=== PATIENT | male | born 1960 | race African-American/Black ===

== ENCOUNTER 2025-02-16 11:24 | Outpatient (REF) | payer MEDICAID, SELFPAY ==
[2025-02-16 14:38] LABS: Appearance Urine Clear; Glucose Urine UA 100 mg/dL (Negative); PH 6.5 (5.0-9.0); Specific Gravity - Urine 1.020 (1.005-1.025); UMIC TRIGGER UA YES
[2025-02-16 14:59] LABS: Anion Gap 15 (12-20); Blood Urea Nitrogen 24 mg/dL (9-16); Calcium 9.4 mg/dL (8.4-10.2); Carbon Dioxide 28 mmol/L (22-29); Chloride 101 mmol/L (96-108); Estimated Glomerular Filt Rate 38; Potassium 3.7 mmol/L (3.3-5.1); Sodium 140 mmol/L (135-145)
[2025-02-16 15:36] LABS: Total Protein Urine Random 30 mg/dL (<12)
== END 2025-02-16 11:25 | disposition home or self-care (01) ==
LOC: HO.HKASLDS 11:24
PROVIDERS: PCP Internal Medicine; Visit Provider Internal Medicine Hypertension Specialist
DX: I12.9 Hypertensive chronic kidney disease with stage 1 through stage 4 chronic kidney disease, or unspecified chronic kidney disease (principal); N18.2 Chronic kidney disease, stage 2 (mild); F17.210 Nicotine dependence, cigarettes, uncomplicated
CPT/HCPCS: 36415; 80048; 81001; 82570; 84156; 99202

== ENCOUNTER 2025-02-16 11:24 | Outpatient (AMB) | payer MEDICAID, SELFPAY ==
--- NOTE | 2025-02-16 11:36 | HO.NEPHOV_ITS ---
Vital Signs 02/16/25 11:42 Height 5 ft 10 in Weight 135 lb BMI 19.4 BP 168/110 H Blood Pressure Location Lt brachial Position Sitting Intake Visit Reasons: ENP: Htn/CKD STG2-Unable to Speak Developer Evangelist Required: No Accompanied by: Self / Same As Patient Allergies ibuprofen Allergy (Unknown, Verified 02/16/25 11:45) Unknown lisinopril Allergy (Unknown, Verified 02/16/25 11:45) Swelling naproxen Allergy (Unknown, Verified 02/16/25 11:45) Unknown Medication List - Last Reconciled 02/16/25 by Ike Hull MD amlodipine 5 mg PO DAILY fluoxetine 20 mg PO QAM gabapentin 300 mg PO BEDTIME PRN nebivolol 10 mg PO DAILY quetiapine 50 mg PO BEDTIME PRN tramadol 50 mg PO TID PRN HPI Comments Details: Russ is a 62-year-old man with a history of hypertension. He has been prescribed amlodipine 5 mg and nebivolol 10 mg. He has been referred for evaluation hypertension. After further questioning he says that he has not taken any of his antihypertensive medications for quite some time. He has been following some mydeco videos and he is worried about all the conspiracy theories that he has exposed to. He smokes about 10 cigarettes a day. History of using marijuana. He also sniff cocaine. Last use was about 3 days ago. [facility] Medical History (Updated 02/16/25 @ 11:49 by Ike Hull MD) Chronic right-sided low back pain with right-sided sciatica Stage 2 chronic kidney disease Primary hypertension Family History (Updated 02/16/25 @ 11:44 by POONAM Berry) Mother Hypertension Father Hypertension Review of Systems Const Denies fever(s) and Denies weight loss Card Denies chest pain Resp Denies cough and Denies hemoptysis GI Denies abdominal pain, Denies diarrhea and Denies nausea Musc Denies back pain Neuro Denies focal weakness Physical Exam Vital Signs: Last Vital Signs BP 168/110 H 02/16/25 11:42 BMI result Body Mass Index 19.4 Comfortable Neck supple no JVD. Lungs entry equal no rales. Heart S1-S2 heard no gallop or rub. Abdomen soft nontender. Neuro alert awake oriented. No asterixis. Extremities no edema. Results Reviewed Results Reviewed: Labs pending Assessment & Plan Assessment & Plan (1) Primary hypertension: Code(s): I10 - Essential (primary) hypertension Category: Medical Plan Middle-aged man with hypertension. Currently hypertension is untreated because he is not taking any of his medications as prescribed. I had a lengthy discussion with him regarding starting antihypertensive medications. I have encouraged him to stay on low-sodium diet. Avoid drug abuse especially cocaine which could spike of blood pressure. The meantime asked him to start taking amlodipine 5 mg a day for the next few weeks and I will see him again. Based on the blood pressure readings we can tailor his treatment. Ordered baseline workup including renal panel and urine studies. We will keep you updated with his progress Thank Orders: Orders UA and rflx microscopic Today I10 - Essential (primary) hypertension Total Protein Urine Random Today I10 - Essential (primary) hypertension Basic Metabolic Panel Today I10 - Essential (primary) hypertension Creatinine Urine Today I10 - Essential (primary) hypertension Coding Level of Care Code New Pt Level 4 (12417) Diagnoses Primary hypertension I10
[2025-02-16 11:42] VITALS: BP 168/110; BMI 19.4
--- OUTSIDE RECORDS SUMMARY | 2025-02-16 12:13 | XMS_ITS | Clinical Summary ---
Author Organization [facility] Address [address] [address] Phone Care Team Providers Care Head Start Director Name Role Phone Luciano Sosa MD Primary Care Provider [phone] Allergies Active Allergy Reactions Criticality Noted Date Comments Lisinopril 12/25/2022 Naproxen 12/25/2022 Medications albuterol HFA (PROVENTIL HFA;VENTOLIN HFA) 108 (90 Base) MCG/ACT inhaler Inhale 2 puffs every 6 (six) hours if needed for wheezing Active amLODIPine (NORVASC) 10 MG tablet Take 10 mg by mouth 1 (one) time each day Active FLUoxetine (PROzac) 40 MG capsule Take 40 mg by mouth 1 (one) time each day Active isosorbide mononitrate (IMDUR) 60 MG 24 hr tablet Take 60 mg by mouth 1 (one) time each day Do not crush or chew. Active QUEtiapine (SEROquel) 50 MG tablet Take 50 mg by mouth every night Active Social History Tobacco Use Types Packs/Day Years Used Date Smoking Tobacco: Never Assessed Sex and Gender Information Value Date Recorded Sex Assigned at Not on file Legal Sex Male 7:56 AM EDT Gender Identity Not on file Sexual Orientation Not on file Plan of Treatment Upcoming Encounters Date Type Department Care Team (Late st Contact Info) Description 03/03/2025 8:30 AM EDT Office Visit [facility] [address] [address] Ralph Webster MD [address] [address] Health Maintenance Due Date Last Done Comments Pneumococcal Vaccine: 50+ Ye ars (1 of 2 - PCV) 1978 Colorectal Cancer Screening: Annual FOBT 2008 Colorectal Cancer Screening: Colonoscopy 2008 Colorectal Cancer Screening: Sigmoidoscopy 2008 Influenza Vaccine (Season Ended) 2025 Hepatitis B Vaccine Aged Out No longe r eligible based on patient's age to complete this topic Insurance Medicaid [place] Care Teams Head Start Director Relationship Specialty Start Date End Date Luciano Sosa MD [address] [address] PCP - General Internal Medicine 01/25/25
--- OUTSIDE RECORDS SUMMARY | 2025-02-16 12:13 | XMS_ITS | Clinical Summary ---
Author Organization [facility] Address [address] [place] [address] Phone Care Team Providers Care Enhanced Environmental Operator Name Role Phone Luciano Sosa MD Primary Care Provider [phone] Allergies Active Allergy Reactions Criticality Noted Date Comments Ibuprofen 08/06/2017 Lisinopril Swelling 12/25/2022 Naproxen 08/06/2017 Medications methocarbamoL (ROBAXIN) 750 mg tablet Take 1 tablet (750 mg total) by mouth 4 (four) times a day for 10 days. 40 each 12/15/2024 Active gabapentin (NEURONTIN) 300 mg capsuleIndicati ons:Acute bilateral low back pain with right-sided sciatica Take 1 capsule (300 mg total) by mouth at bedtime as needed (back pain). 30 each 12/24/2024 06/22/20 25 Active traMADoL (ULTRAM) 50 mg tabletIndicatio ns:Acute bilateral low back pain with right-sided sciatica Take 1 tablet (50 mg total) by mouth 3 (three) times a day if needed for moderate pain. Max Daily Amount: 150 mg 21 tablet 01/07/2025 Active amLODIPine (NORVASC) 5 mg tablet Take 1 tablet (5 mg total) by mouth 1 (one) time each day. 30 each 01/24/2025 07/23/20 25 Active nebivoloL (Bystolic) 10 mg tablet Take 1 tablet (10 mg total) by mouth 1 (one) time each day. 30 each 01/24/2025 01/25/20 26 Active Active Problems Problem Noted Date Diagnosed Date Chronic right-sided low back pain with right-abhishek ed sciatica 12/24/2024 Encounters Date Type Department Care Team Description 01/25/2025 Telephone Internal Medicine [address] [address] Luciano Sosa MD notes (Office notes/lab) 01/24/2025 2:30 PM EDT Office Visit Internal Medicine [address] [address] Luciano Sosa MD Primary hypertension (Primary Dx); Chronic right-sided low back pain with right-sided sciatica; Stage 2 chronic kidney disease 12/25/2024 8:03 PM EDT - 12/25/2024 9:19 PM EDT Emergency [facility] Emergency [address] [place] [address] Chronic bilateral low back pain with bilateral sciatica (Primary Dx) Discharge Disposition: Home or Self Care 12/24/2024 11:00 AM EDT Office Visit Internal Medicine [address] [address] Jose Delcid NP Acute bilateral low back pain with right-sided sciatica (Primary Dx) 12/24/2024 Telephone Internal Medicine [address] [address] Luciano Sosa MD Med Refill 12/24/2024 Telephone Internal Medicine [address] [address] Luciano Sosa MD Faxed vna form 12/16/2024 [facility] [address] [address] Luciano Sosa MD 12/15/2024 5:54 PM EDT - 12/15/2024 7:28 PM EDT Emergency [facility] Emergency [address] [place] [address] Sciatica of right side (Primary Dx) Discharge Disposition: Home or Self Care 11/29/2024 Telephone Internal Medicine [address] [place] [phone] Celina Simmons MA Request For Order(s) ([facility] -PCP Order Form ) 11/29/2024 Telephone Internal Medicine - [address] [place] [phone] Luciano Sosa MD from Last 3 Months Medical History Medical History Date Comments Back pain, chronic 12/17/2017 DX:Back pain, chronic Depression with anxiety 09/08/2017 DX:Depre ssion with anxiety HTN (hypertension) 12/03/2017 DX:HTN (hyper tension) Hyperthyroidism 12/03/2017 DX:Hyperthyroidi sm PTSD (post-traumatic stress disorder) 08/06/2017 DX:PTSD (post-traumatic stress disorder) Thyroid nodule 09/08/2017 DX:Thyroid nodul e Family History Medical History Relation Name Comments No Known Problems Brother No Known Problems Daughter No Known Problems Father No Known Problems Mother No Known Problems Other No Known Problems Sister No Known Problems Son Autoimmune disease Neg Hx Breast cancer Neg Hx Colon cancer Neg Hx Coronary artery disease Neg Hx Diabetes Neg Hx Heart attack Neg Hx Heart failure Neg Hx Hyperlipidemia Neg Hx Hypertension Neg Hx Mental illness Neg Hx Prostate cancer Neg Hx Sleep apnea Neg Hx Thyroid disease Neg Hx Relation Name Status Comments Brother Daughter Father Mother Other Sister Son Social History Tobacco Use Types Packs/Day Years Used Date Smoking Tobacco: Former Smokeless Tobacco: Never Alcohol Use Standard Drinks/Week Comments Yes 0 (1 standard drink = 0.6 oz pur e alcohol) Sex and Gender Information Value Date Recorded Sex Assigned at Not on file Legal Sex Male 12:06 AM EST Gender Identity Not on file Sexual Orientation Not on file Obstetrics History Last Filed Vital Signs Vital Sign Reading Time Taken Comments Blood Pressure 160/110 01/24/2025 2:31 PM EDT Pulse 88 01/24/2025 2:31 PM EDT Temperature 36.8 C (98.2 F) 01/24/2025 2:31 PM EDT Respiratory Rate 16 12/25/2024 5:55 PM EDT Oxygen Saturation 97% 01/24/2025 2:31 PM EDT Inhaled Oxygen Concentration - - Weight 60.2 kg (132 lb 12.8 oz) 01/24/2025 2:31 PM EDT Height 177.8 cm (5' 10 ) 12/25/2024 5:55 PM EDT Body Mass Index 19.05 12/25/2024 5:55 PM EDT Plan of Treatment Upcoming Encounters Date Type Department Care Team (Late st Contact Info) Description 06/28/2025 3:00 PM EST Office Visit Internal Medicine - [place] [address] [facility] [address] [place] [phone] Luciano Sosa MD [address] [facility] [address] [place] [address] Health Maintenance Due Date Last Done Comments Hepatitis A Vaccines (1 of 2 - Risk 2-dose series) 1978 Zoster Vaccines (1 of 2) 1978 Pneumococcal Vaccine: 50+ Years (1 of 1 - PCV) 2009 Abdominal Aortic Aneurysm (AAA) Screen 07/27/2022 Cholesterol Screening (Lipid Panel) 07/27/2022 Colorectal Cancer Screening: Colonoscopy 07/27/2022 Depression Screening 07/27/2022 Hepatitis C Screening 07/27/2022 Social Influencers of Health Screening 07/27/2022 Hypertension/CHF/CAD Annual BMP Blood Test 07/28/2022 COVID-19 Vaccine (4 - 2023-2 5 season) 2024 06/25/2022, 12/09/2020, 11/15/2020 Falls Risk Assessment 2024 Influenza Vaccine (Season Ended) 2025 DTaP,Tdap,and Td Vaccines (2 - Td or Tdap) 03/17/2032 03/17/2022 RSV Immunization Adult Patients (1 - 1-dose 75+ series) 2034 HIB Vaccines Aged Out No longer eligi ble based on patient's age to complete this topic HPV Vaccines Aged Out No longer eligi ble based on patient's age to complete this topic Hepatitis B Vaccines Aged Out No long er eligible based on patient's age to complete this topic IPV Vaccines Aged Out No longer eligi ble based on patient's age to complete this topic MMR Vaccines Aged Out No longer eligi ble based on patient's age to complete this topic Meningococcal ACWY Vaccine Aged Out N o longer eligible based on patient's age to complete this topic Meningococcal B Vaccine Aged Out No l onger eligible based on patient's age to complete this topic Pneumococcal Vaccine: Pediatrics (0 to 5 Years) and At-Risk Patients (6 to 64 Years) Aged Out No longer eligible b ased on patient's age to complete this topic RSV Immunization Patients Under 20 months Aged Out No longer eligible b ased on patient's age to complete this topic Varicella Vaccines Aged Out No longer eligible based on patient's age to complete this topic Insurance MEDICAID - [place] Care Teams Enhanced Environmental Operator Relationship Specialty Start Date End Date Luciano Sosa MD [address] [address] PCP - General Internal Medicine 12/23/18
--- OUTSIDE RECORDS SUMMARY | 2025-02-16 12:13 | XMS_ITS | Clinical Summary ---
Author Organization [facility] Address [address] [place] [address] Care Team Providers Care Psychological Operations Officer Name Role Phone Luciano Sosa MD Primary Care Provider Unavailab le Allergies Active Allergy Reactions Criticality Noted Date Comments Naproxen 09/26/2022 Medications Medication Sig Dispensed Refills Start Date End Date Status hydroCHLOROthiazide (MICROZIDE) 12.5 MG capsule Take 1 capsule (12.5 mg total) by mouth daily. 0 Active FLUoxetine (PROzac) 20 MG capsule Take 1 capsule (20 mg total) by mouth daily. 0 Active amLODIPine (NORVASC) tablet 2.5 mg Take 1 tablet (2.5 mg total) by mouth daily. 0 Active sertraline (ZOLOFT) 50 MG tablet Take 1 tablet (50 mg total) by mouth daily. 0 Active Active Problems Problem Noted Date Diagnosed Date Other specified anemias 09/28/2022 Social History Tobacco Use Types Packs/Day Years Used Date Smoking Tobacco: Never Assessed Sex and Gender Information Value Date Recorded Sex Assigned at Not on file Gender Identity Not on file Sexual Orientation Not on file Job Start Date Occupation Industry Not on file Not on file Not on file Last Filed Vital Signs Vital Sign Reading Time Taken Comments Blood Pressure 101/72 09/26/2022 2:14 PM EST Pulse 92 09/26/2022 2:14 PM EST Temperature 37.1 C (98.8 F) 09/26/2022 2:14 PM EST Respiratory Rate - - Oxygen Saturation 99% 09/26/2022 2:14 PM EST Inhaled Oxygen Concentration - - Weight 71.2 kg (157 lb) 09/26/2022 2:14 PM EST Height 175.3 cm (5' 9 ) 09/26/2022 2:14 PM EST Body Mass Index 23.18 09/26/2022 2:14 PM EST Plan of Treatment Health Maintenance Due Date Last Done Comments Hepatitis C Screening 1959 COVID-19 Vaccine (#1) 03/15/1960 Depression Screening 1971 Preventative Health Evaluation 1977 DTap / Tdap / Td (1 - Tdap) 1978 Colon Cancer Screening (Colonoscopy) 2004 Shingrix-Zoster Vaccine (1 of 2) 2009 Fall Risk Assessment 2024 Pneumococcal Vaccine (1 of 1 - PCV) 2024 Influenza Vaccine (Season Ended) 2025 RSV Adult > 60+ Yrs or Pregn ant (1 - 1-dose 75+ series) 2034 Hepatitis B Vaccines Aged Out No long er eligible based on patient's age to complete this topic Pneumococcal Vaccine Aged Out No long er eligible based on patient's age to complete this topic RSV Ped < 20 months Aged Out No longe r eligible based on patient's age to complete this topic Care Teams Psychological Operations Officer Relationship Specialty Start Date End Date Luciano Sosa MD PCP - General Internal Medicine 07/26/22
== END 2025-02-16 11:55 | disposition home or self-care (01) ==
PROVIDERS: PCP Internal Medicine; Visit Provider Internal Medicine Hypertension Specialist
DX: I10 Essential (primary) hypertension (principal)
CPT/HCPCS: 99204

== ENCOUNTER 2025-03-23 08:55 | Outpatient (AMB) | payer MEDICAID, SELFPAY ==
--- OUTSIDE RECORDS SUMMARY | 2025-03-23 09:06 | XMS_ITS | Clinical Summary ---
Author Organization [facility] Address [address] [place] [address] Phone Care Team Providers Care Mortgage Specialist Name Role Phone Luciano Sosa MD Primary Care Provider [phone] Allergies Active Allergy Reactions Criticality Noted Date [...] Care Team Description 01/25/2025 Telephone Internal Medicine [address] [phone] Luciano Sosa MD notes (Office notes/lab) 01/24/2025 2:30 PM EDT Office Visit Internal Medicine [address] [address] Luciano Sosa MD Primary hypertension (Primary Dx); Chronic right-sided low back pain with right-sided sciatica; Stage 2 chronic kidney disease 12/25/2024 8:03 PM EDT - 12/25/2024 9:19 PM EDT Emergency [facility] Emergency [address] [place] [phone] Chronic bilateral low back pain with bilateral sciatica (Primary Dx) Discharge Disposition: Home or Self Care 12/24/2024 11:00 AM EDT Office Visit Internal Medicine [address] [phone] Jose Delcid NP Acute bilateral low back pain with right-sided sciatica (Primary Dx) 12/24/2024 Telephone Internal Medicine [address] [address] Luciano Sosa MD Med Refill 12/24/2024 Telephone Internal Medicine [address] [phone] Luciano Sosa MD Faxed vna form from Last 3 Months Medical History Medical [...] PM EST Office Visit Internal Medicine - [place] [address] [facility] [address] [place] [phone] Luciano Sosa MD [address] [facility] [address] [place] [address] Health Maintenance Due Date Last Done Comments Hepatitis A Vaccines (1 of 2 - Risk 2-dose series) 1978 Zoster Vaccines (1 of 2) 1978 Pneumococcal Vaccine: 50+ Years (1 of 1 - PCV) 2009 Abdominal Aortic Aneurysm (AAA) Screen 07/27/2022 Cholesterol Screening (Lipid Panel) 07/27/2022 Colorectal Cancer Screening: Colonoscopy 07/27/2022 Hepatitis C Screening 07/27/2022 Social Influencers of Health Screening 07/27/2022 Hypertension/CHF/CAD Annual BMP Blood Test 07/28/2022 COVID-19 Vaccine (4 - 2023-2 5 season) 2024 06/25/2022, 12/09/2020, 11/15/2020 Depression Screening 08/18/2024 Falls Risk Assessment 2024 Influenza Vaccine (#1) 2025 DTaP,Tdap,and Td Vaccines (2 - Td [...] to complete this topic Insurance MEDICAID - [place] Care Teams Mortgage Specialist Relationship Specialty Start Date End Date Luciano Sosa MD [address] [place] [id number] PCP - General Internal Medicine 12/23/18
--- OUTSIDE RECORDS SUMMARY | 2025-03-23 09:06 | XMS_ITS ---
Author Name [facility] Organization Unknown Care Team Organization Name Specialty Phone Email Start Date End Da mary [facility] SHARONDA ERICKSON Primary Care 06/25/2022 04/05/20 24
--- OUTSIDE RECORDS SUMMARY | 2025-03-23 09:06 | XMS_ITS | Clinical Summary ---
Author Organization [facility] Address [address] [place] [address] Care Team Providers Care Industrial Economics Teacher Name Role Phone Luciano Sosa MD Primary [...] of 1 - PCV) 2024 Influenza Vaccine (#1) 2025 RSV Adult > 60+ Yrs or [...] age to complete this topic Care Teams Industrial Economics Teacher Relationship Specialty Start Date End Date Luciano Sosa MD PCP - General Internal Medicine 07/26/22
--- OUTSIDE RECORDS SUMMARY | 2025-03-23 09:06 | XMS_ITS | Clinical Summary ---
Author Organization [facility] Address [address] [address] Phone Care Team Providers Care Associate Editor Name Role Phone Luciano Sosa MD Primary Care Provider [phone] Allergies Active Allergy Reactions Criticality Noted Date [...] 50 mg by mouth every night Active gabapentin (NEURONTIN) 300 MG capsule Take 300 mg by mouth once daily as needed 5 06/22/20 25 Active hydrALAZINE 50 MG tablet Take 50 mg by mouth 3 Active traMADol (ULTRAM) 50 MG tablet Take 50 mg by mouth 3 times daily as needed 5 Active Active Problems No known active problems Encounters Date Type Department Care Team Description 03/04/2025 Orders Only [facility] [address] [address] Ralph Webster MD 03/04/2025 Orders Only [facility] [address] [phone] Ralph Webster MD 03/04/2025 Orders Only [facility] [address] [phone] Ralph Webster MD 03/04/2025 Orders Only [facility] [address] [address] Ralph Webster MD 03/04/2025 Orders Only [facility] [address] [address] Ralph Webster MD 03/03/2025 8:30 AM EDT Office Visit [facility] [address] [address] Ralph Webster MD Hypertension (Primary Dx) from Last 3 Months Family History Relation Status Comments Father Mother Social History Tobacco Use Types Packs/Day Years Used Date Smoking Tobacco: Every Day Cigarettes Tobacco Cessation:Ready to Q uit: Not Asked; Counseling Given: Not Answered Sex and Gender Information Value Date Recorded Sex Assigned at Not on file Legal Sex Male 7:56 AM EDT Gender Identity Not on file Sexual Orientation Not on file Last Filed Vital Signs Vital Sign Reading Time Taken Comments Blood Pressure 142/95 03/03/2025 8:37 AM EDT Pulse 78 03/03/2025 8:37 AM EDT Temperature - - Respiratory Rate - - Oxygen Saturation 95% 03/03/2025 8:37 AM EDT Inhaled Oxygen Concentration - - Weight 62.1 kg (137 lb) 03/03/2025 8:37 AM EDT Height - - Body Mass Index - - Plan of Treatment Upcoming Encounters Date Type Department Care Team (Late st Contact Info) Description 03/28/2025 9:00 AM EDT Clinical Support [facility] [address] [address] 04/01/2025 9:45 AM EDT Office Visit [facility] [address] [address] Ralph Webster MD [address] [address] Health Maintenance Due Date Last Done Comments Pneumococcal Vaccine: 50+ Ye ars (1 of 2 - PCV) 1978 Colorectal Cancer Screening: Annual FOBT 2008 Colorectal Cancer Screening: Colonoscopy 2008 Colorectal Cancer Screening: Sigmoidoscopy 2008 Influenza Vaccine (#1) 2025 Hepatitis B Vaccine Aged Out No longe r eligible based on patient's age to complete this topic Insurance Medicaid [place] Care Teams Associate Editor Relationship Specialty Start Date End Date Luciano Sosa MD 175 [facility] [address] [place] [address] PCP - General Internal Medicine 01/25/25
[2025-03-23 09:12] VITALS: BP 162/108; BMI 19.2
--- NOTE | 2025-03-23 09:12 | HO.NEPHOV_ITS ---
Vital Signs 03/23/25 09:12 Height 5 ft 10 in Weight 134 lb BMI 19.2 BP 162/108 H Blood Pressure Location Lt brachial Position Sitting Intake Visit Reasons: 1mon follow-up/ Conf Lamp [employer] Street Light Required: No Accompanied by: Self / Same As Patient Allergies ibuprofen Allergy (Unknown, Verified 03/23/25 09:14) Unknown lisinopril Allergy (Unknown, Verified 03/23/25 09:14) Swelling naproxen Allergy (Unknown, Verified 03/23/25 09:14) Unknown Medication List - Last Reconciled 03/23/25 by Ike Hull MD amlodipine 5 mg PO DAILY fluoxetine 20 mg PO QAM gabapentin 300 mg PO BEDTIME PRN nebivolol 10 mg PO DAILY quetiapine 50 mg PO BEDTIME PRN tramadol 50 mg PO TID PRN HPI Comments Details: Russ is a 62-year-old man with a history of hypertension. He has been prescribed amlodipine 5 mg and nebivolol 10 mg. He has been referred for evaluation hypertension. After further questioning he says that he has not taken any of his antihypertensive medications for quite some time. He has been following some [employer] [facility] and he is worried about all the conspiracy theories that he has exposed to. He smokes about 10 cigarettes a day. History of using marijuana. He also sniff cocaine. Last use was about 3 days ago. 03/23/25 Did NOT take medications [facility] Medical History (Updated 03/23/25 @ 09:18 by Ike Hull MD) Chronic right-sided low back pain with right-sided sciatica Stage 2 chronic kidney disease Primary hypertension Family History Mother Hypertension Father Hypertension Physical Exam Vital Signs: Last Vital Signs BP 162/108 H 03/23/25 09:12 BMI result Body Mass Index 19.2 Comfortable Neck supple no JVD. Lungs entry equal no rales. Heart S1-S2 heard no gallop or rub. Abdomen soft nontender. Neuro alert awake oriented. No asterixis. Extremities no edema. Results Reviewed Results Reviewed: February 2025. Urine protein creatinine ratio. 0.20 Nephrology Results: Sodium, (135-145) 140 mmol/L 02/16/25 Potassium, (3.3-5.1) 3.7 mmol/L 02/16/25 Chloride, (96-108) 101 mmol/L 02/16/25 Carbon Dioxide, (22-29) 28 mmol/L 02/16/25 BUN, (9-16) 24 mg/dL H 02/16/25 Creatinine, (0.5-1.4) 1.82 mg/dL H 02/16/25 Calcium, (8.4-10.2) 9.4 mg/dL 02/16/25 Urine Protein, (Neg-Trace) 30 (1+) mg/dL H 02/16/25 Urine Creatinine 143.38 mg/dL 02/16/25 Assessment & Plan Assessment & Plan (1) Primary hypertension: Code(s): I10 - Essential (primary) hypertension Category: Medical (2) CKD (chronic kidney disease): Code(s): N18.9 - Chronic kidney disease, unspecified Category: Medical Plan Middle-aged man with hypertension. Currently hypertension is untreated because he is not taking any of his medications as prescribed. I had a lengthy discussion with him regarding starting antihypertensive medications. I have encouraged him to stay on low-sodium diet. Avoid drug abuse especially cocaine which could spike of blood pressure. The meantime asked him to start taking amlodipine 5 mg a day for the next few weeks and I will see him again. Based on the blood pressure readings we can tailor his treatment. Ordered baseline workup including renal panel and urine studies. 03/23/25 Blood pressure is suboptimal primary to noncompliance. I discussed importance of staying compliant with his medications. Increased amlodipine from 5 mg to 10 mg a day. Chronic kidney disease. Creatinine is 1.3 with EGFR of 30 mL/minute He probably has hypertensive nephrosclerosis. Urine protein creatinine ratio 0.2. UA trace amount of blood. I will obtain basic serologic examination limited renal ultrasonogram. Return to clinic in the next 4-6 weeks Orders: Orders US renal BI Today N18.9 - Chronic kidney disease, unspecified Protein Electrophoresis, Serum 3 Weeks N18.9 - Chronic kidney disease, unspecified Anti Glomerular Basement Memb 3 Weeks N18.9 - Chronic kidney disease, unspecified Complement C3 3 Weeks N18.9 - Chronic kidney disease, unspecified Comprehensive Met. Panel 3 Weeks N18.9 - Chronic kidney disease, unspecified Complement C4 3 Weeks N18.9 - Chronic kidney disease, unspecified Medications: Changed From amlodipine 5 mg PO DAILY To amlodipine 10 mg PO DAILY Coding Level of Care Code Est Pt Level 4 (34637) Diagnoses Primary hypertension I10 CKD (chronic kidney disease) N18.9
== END 2025-03-23 09:46 | disposition home or self-care (01) ==
LOC: HO.HKAS 08:56
PROVIDERS: PCP Internal Medicine; Visit Provider Internal Medicine Hypertension Specialist
DX: I12.9 Hypertensive chronic kidney disease with stage 1 through stage 4 chronic kidney disease, or unspecified chronic kidney disease (principal); N18.9 Chronic kidney disease, unspecified
CPT/HCPCS: 99214

== ENCOUNTER → 2025-03-23 08:55 | Outpatient (BNVA) | payer MEDICAID, SELFPAY | PROVIDERS: PCP Internal Medicine; Visit Provider Internal Medicine Hypertension Specialist | DX: I12.9 Hypertensive chronic kidney disease with stage 1 through stage 4 chronic kidney disease, or unspecified chronic kidney disease (principal); N18.2 Chronic kidney disease, stage 2 (mild); Z91.148 Patient's other noncompliance with medication regimen for other reason | CPT/HCPCS: 99212 ==

== ENCOUNTER 2025-03-28 15:12 | Outpatient (REF) | payer MEDICAID, SELFPAY ==
--- NOTE | ~2025-03-28 | US_ITS ---
EXAMINATION: US KIDNEY BILATERAL HISTORY: CKD TECHNIQUE: Real-time grayscale ultrasound imaging of the kidneys was performed and images were reviewed. COMPARISON: There are no prior studies available for comparison. FINDINGS: Right kidney: The right kidney measures 9.5 x 5.9 x 6.6 cm. Renal parenchymal echotexture and thickness are normal. There are no masses. There is no hydronephrosis or renal calculi. Left Kidney: The left kidney measures 10.9 x 6.3 x 5.2 cm. Renal parenchymal echotexture and thickness are normal. There are no masses. There is no hydronephrosis or renal calculi. US/US renal BI IMPRESSION: Unremarkable renal ultrasound. Electronically signed by: Brock Shaffer MD 03/28/2025 03:42 PM EDT
--- OUTSIDE RECORDS SUMMARY | 2025-03-28 15:30 | XMS_ITS | Clinical Summary ---
Author Organization [facility] Address [address] [place] [address] Phone Care Team Providers Care Emergency Room Physician Name Role Phone Luciano Sosa MD Primary Care Provider [phone] Allergies Active Allergy Reactions Criticality Noted Date [...] Care Team Description 01/25/2025 Telephone Internal Medicine [address] [place] [phone] Luciano Sosa MD notes (Office notes/lab) 01/24/2025 2:30 PM EDT Office Visit Internal Medicine [address] [phone] Luciano Sosa MD Primary hypertension (Primary Dx); Chronic right-sided low back pain with right-sided sciatica; Stage 2 chronic kidney disease from Last 3 Months Medical History Medical [...] PM EST Office Visit Internal Medicine - [facility] [address] [facility] [address] [place] [phone] Luciano Sosa MD [address] [facility] [address] [place] [address] Health Maintenance Due Date Last Done Comments [...] topic Insurance MEDICAID - [place] Care Teams Emergency Room Physician Relationship Specialty Start Date End Date Luciano Sosa MD [address] [id number] PCP - General Internal Medicine 12/23/18
--- OUTSIDE RECORDS SUMMARY | 2025-03-28 15:30 | XMS_ITS | Clinical Summary ---
Author Organization [facility] Address [address] [place] [address] Care Team Providers Care Cigarette Stamper Name Role Phone Luciano Sosa MD Primary [...] age to complete this topic Care Teams Cigarette Stamper Relationship Specialty Start Date End Date Luciano Sosa MD PCP - General Internal Medicine 07/26/22
== END 2025-03-28 15:13 | disposition home or self-care (01) ==
LOC: HO.US 15:12
PROVIDERS: PCP Internal Medicine; Visit Provider Internal Medicine Hypertension Specialist
DX: N18.9 Chronic kidney disease, unspecified (principal)
CPT/HCPCS: 76775

== ENCOUNTER → 2025-03-28 15:16 | Outpatient (BNV) | payer MEDICAID, SELFPAY | PROVIDERS: PCP Internal Medicine; Visit Provider Radiology Diagnostic Radiology | DX: N18.9 Chronic kidney disease, unspecified (principal) | CPT/HCPCS: 76775 ==